=== PATIENT | female | born 1990 | race Caucasian/White ===

== ENCOUNTER → 2024-01-08 14:39 | Outpatient (REF) | payer OTHER, SELFPAY | LOC: RAD 14:39 | PROVIDERS: ATTENDING PHYSICIAN Obstetrics & Gynecology; FAMILY PHYSICIAN Family Medicine | DX: O26.851 Spotting complicating pregnancy, first trimester (principal) | CPT/HCPCS: 76801; 76817 ==

== ENCOUNTER 2024-01-10 08:24 | Emergency (ER) | payer OTHER, SELFPAY ==
[2024-01-10 08:26] VITALS: BP 119/73
[2024-01-10 09:09] LABS: % Basophils 0.4 % (0-2); % Immature Granulocytes 0.4 % (0-0.5); % Lymphocytes 18.1 % (20.5-51.1); % Monocytes 7.6 % (1.7-9.3); % Neutrophils 70.5 % (42.2-75.2); Absolute Eosinophils 0.3 10^3/uL (0-0.7); Absolute Lymphocytes 1.5 10^3/uL (1.2-3.4); Absolute Monocytes 0.6 10^3/uL (0.1-0.6); Absolute Neutrophils 5.9 10^3/uL (1.4-6.5); Hematocrit 38.7 % (37.0-47.0); Hemoglobin 13.3 g/dL (12.0-16.0); Mean Corp Hgb Conc. 34.4 g/dL (33.0-37.0); Mean Corpuscular Hgb 28.1 pg (27.0-31.0); Mean Corpuscular Volume 81.6 fL (81.0-99.0); Mean Platelet Volume 11.3 fL (7.4-10.4); Nucleated Red Blood Cells % 0 %; Platelet Count 248 10^3/uL (130-400); Red Blood Cell Count 4.74 10^6/uL (4.20-5.40); Red Cell Dist. Width 14.5 % (11.5-14.5); White Blood Cell Count 8.4 10^3/uL (4.8-10.8)
[2024-01-10 09:27] LABS: Blood Urea Nitrogen 10 mg/dl (7-17); Calcium 9.5 mg/dl (8.4-10.2); Carbon Dioxide 23 mmol/L (22-30); Chloride 102 mmol/L (98-107); Glucose 122 mg/dl (70-99); Potassium 4.2 mmol/L (3.5-5.1); Sodium 134 mmol/L (135-145); eGFR > 60.00
[2024-01-10 09:43] LABS: Beta HCG Quantitative 655.47 mIU/ml
[2024-01-10] MEDS: NSS 500 IV (09:57)
[2024-01-10] MEDS: OFIRMEV 100 IV (10:10)
--- NOTE | 2024-01-10 11:02 | ED.GENMED ---
History of Present Illness
General
Chief Complaint: Problems
Source: patient
Exam Limitations: none
Time Seen by Provider: 01/10/24 08:37
History of Present Illness
History of Present Illness:
, 7 weeks being evaluated and followed for possible ectopic. Has had some spotting. Some right lower quadrant or pelvic pain. Ultrasound 2 days ago was nondiagnostic. Last quantitative hCG was 1900. Some increasing pain overnight
into today. Sent for further evaluation.
Past History
Past History
ED Past Medical History: Other (Cholelithiasis)
ED Past Surgical History: Other (Oral surgery)
Social History
Tobacco: Non-smoker
Alcohol: Occasional
Living: with family
Employment: Employed
Family History
Family History: Other (Cholelithiasis)
Review of Systems
Review of Systems
All Other Systems: Not applicable
Constitutional: Denies fever or chills
ABD/GI: Denies anorexia
Phy Exam
Physical Exam
Physical Exam:
GENERAL: Alert and oriented in no apparent distress
EYE: Orbits normal.
NECK: Supple
CARDIAC: Regular rate and rhythm without any obvious murmurs.
LUNGS: Clear breath sounds,normal
ABDOMEN: Soft, elevated BMI. Bowel sounds present. No distention. Mild reproducible tenderness deep towards the right pelvis. No tenderness at McBurney's point
NEUROLOGICAL: Alert and oriented , grossly non-focal
SKIN: Warm and dry
MUSCULOSKELETAL: No edema,no deformity.Good color
PSYCH: Normal and appropriate interaction.
Course
Orders/Labs/Results
Orders:
Orders
01/10/24 08:37
0.9% Sodium Chloride 500 ml [Nss] 500 ml IV BOLUS
US 1st Trimester Urgent
Reason For Exam: /pelvic pain
01/10/24 08:52
Blood Group&Type Urgent
Basic Metabolic Panel Urgent
Beta HCG Quantitative Urgent
Is this a screen?: No
Complete Blood Count/With Diff Urgent
01/10/24 10:06
Acetaminophen 1000MG/100Ml [Ofirmev] 1,000 mg in 100 ml IV ONCE
Acetaminophen IV Indication:: ED Narcotic Naive Pt-ONCE
01/10/24 10:48
Methotrexate Sodium/Pf [Methotrexate] 135.5 mg Intramuscular Injection 0 ml IM ONCE
Abnormal Lab Results
01/10/24
08:52
MPV 11.3 H fL
(7.4-10.4)
Lymphocytes % 18.1 L %
(20.5-51.1)
Sodium 134 L mmol/L
(135-145)
Glucose 122 H mg/dl
(70-99)
01/10/24 08:52
01/10/24 08:52
Vital Signs
Initial and Last Documented VS:
Initial Vital Signs
Temp Pulse Resp BP Pulse Ox
97.3 F 84 16 119/73 98
01/10/24 08:26 01/10/24 08:26 01/10/24 08:26 01/10/24 08:26 01/10/24 08:26
Last Documented Vital Signs
Temp Pulse Resp BP Pulse Ox
97.3 F 84 16 119/73 98
01/10/24 08:26 01/10/24 08:26 01/10/24 08:26 01/10/24 08:26 01/10/24 08:26
Information
Weeks gestation: Weeks: (7)
Location: Location: ([facility])
MDM/Problems Addressed
Differential Diagnosis Includes:
Concern for ectopic . Quantitative hCGs are lowering. Ultrasound consistent with a probable ectopic. Highly doubt that these are incidental findings and that the diagnosis is appendicitis. No fever no white count no tenderness McBurney
point another reasonable etiology for patient's symptoms. Seen by obstetrics/[facility]. They apparently after discussion with the patient have elected methotrexate. Stable for discharge to follow-up
*Radiology
Radiology exam reviewed: radiology read reviewed (Rounded hypoechoic structure right adnexa. Suspicious for ectopic)
*Pulse Oximetry
Patient hypoxic: no
*Critical Care Note
Total Time (30-74mins, 75-104mins- exclusive of procedures): Not Applicable
ED Attending Note
-
Portions of this chart may have been created with voice recognition software.� Occasional wrong word or��sound alike� substitutions may have occurred due to the inherent limitations of voice recognition software.
Discharge Plan
Departure
Patient Disposition: Home (Routine Discharge)
Date of Disposition: 01/10/24
Time of Disposition: 11:06
Patient with high blood pressure during this ER visit?: No
Discharge Problem:
Right pelvic pain, Ectopic
Instructions: Ectopic ED
Prescriptions:
No Action
labetalol 100 mg Tablet
100 mg PO TID
prenat.vits,quiana,dha-mbzo-loovy Tablet
1 tab PO DAILY
acetaminophen 325 mg Tablet
650 mg PO Q4HPRN PRN (Reason: mild pain) Qty: 0 0RF
sennosides-docusate sodium [Senna Plus] 8.6-50 mg Tablet
1 tab PO DAILYPRN PRN (Reason: constipation) Qty: 0 0RF
ibuprofen 600 mg Tablet
600 mg PO Q6HPRN PRN (Reason: moderate pain/cramps) Qty: 45 0RF
Referrals:
Olivia Leija MD [Active] -
Loretta Ochoa DO [Family Provider] -
Activity Restrictions/Additional Instructions:
Follow-up as per your [employer] physician
Return sooner with increased pain fever lightheadedness feeling like you are to pass out or any other concerning symptoms
Interventions
Interventions:
*Risk Screen - Suicide Last Done: 01/10/24 08:26
*General Assessment Last Done: 01/10/24 08:26
*Neglect/Abuse Screening Last Done: 01/10/24 08:26
ED- Fall Risk Assessment Last Done: 01/10/24 09:06
*ED COVID-19 Vaccine History Last Done: 01/10/24 09:06
ED-Female Genitourinary Assessment Last Done: 01/10/24 09:06
Discharge Date and Time
Print Language: CYMRAES
[2024-01-10] MEDS: METHOTREXATE 2 MG IM ×2 (12:10→12:11)
[2024-01-10] MEDS: METHOTREXATE 1 MG IM (12:11)
[2024-01-10 12:45] VITALS: BP 149/96
--- NOTE | 2024-01-10 12:57 | CON.MD ---
Consultation - Medical
-
33yo presents to the ER due to worsening RLQ pain since last night as well as spotting for the last few days. She has been followed as an outpatient for of unknown location. Initially patient had a lot of bleeding in early December,
this prompted us to monitor her HCGs which seemed to be rising okay until today. Her bleeding initially stopped and then resumed as spotting a few days ago. She denies n/v/f/c.
HCGs are as follows
12/25: 21
12/30: 229
01/01: 553
01/06: 1983
01/08: 161
Patient did have a Pelvic U/S outpatient on 01/07 due to return of spotting, and this showed no IUP and also no adnexal mass
PMHx: CHTN, Obesity
POBHx: x1, SAB x1
FHx: Dad- Diabetes Mom- bobby's, MGM- breast CA
SHx: neg x3
Meds: labetalol 100mg TID
All: NKDA
Vitals & Labs see below
Gen: nad
Abd: soft, nt, nd, obese
Ext: no LE ttp/edema
Pelvic US: Uterus 10.3x 4.3x 6.3cm. EMS6mm Right ovary 2cm. Rounded hypoechoic structure in right adnexa adjacent to right ovary 2.1x 2.3x 1.8cm. No FP./YS seen. Left ovary 1.2cm.
A/P: 33yo with suspected Right ectopic
-patient is hemodynamically stable. states that her pain has been significantly improved with tylenol while in the ER. I reviewed with her and her family member the results of her HCG and her Pelvic US which is concerning for an ectopic in
the right tube. There is no suspicion at this time for rupture of the tube. I think she is a good candidate for medical management with methotrexate. I explained to her the possible side effects and activities/medications she should avoid and
provided her with a document that lists this information. I explained the importance of close f/u of her HCGs and told her specifically when she needs to return for labs. Patient aware that there is still a risk for rupture even after MTX treatment
so she is to call with any severe pain not relieved with tylenol. Patient also aware that a 2nd dose of MTX may be needed if her HCG does not appropriately drop. She expressed understanding
-patient can be d/c home after she receives MTX.
Encounter and review of imaging and Documentation Time = 35 mins
Vital Signs and Labs
-
Vital Signs and Labs:
Vital Signs
Temp Pulse Resp BP Pulse Ox
97.3 F 84 16 119/73 98
01/10/24 08:26 01/10/24 08:26 01/10/24 08:26 01/10/24 08:26 01/10/24 08:26
Lab Results
01/10/24 08:52
01/10/24 08:52
Sodium 134 mmol/L (135-145) L 01/10/24 08:52
Potassium 4.2 mmol/L (3.5-5.1) 01/10/24 08:52
BUN 10 mg/dl (7-17) 01/10/24 08:52
Glucose 122 mg/dl (70-99) H 01/10/24 08:52
Calcium 9.5 mg/dl (8.4-10.2) 01/10/24 08:52
HC.47
== END 2024-01-10 12:45 | disposition home or self-care (01) ==
LOC: EMR 08:24
PROVIDERS: EMERGENCY PHYSICIAN Emergency Medicine; FAMILY PHYSICIAN Family Medicine; OTHER PHYSICIAN Obstetrics & Gynecology
DX: O00.90 Unspecified ectopic pregnancy without intrauterine pregnancy (principal); O26.891 Other specified pregnancy related conditions, first trimester; Z3A.01 Less than 8 weeks gestation of pregnancy; R10.2 Pelvic and perineal pain; O99.211 Obesity complicating pregnancy, first trimester
CPT/HCPCS: 99284; 96374; 96361 ×2; 96372 ×3; 76801; 80048; 84702; 85025; 86900; 86901; J9260

== ENCOUNTER → 2024-01-13 08:35 | Outpatient (REF) | payer OTHER, SELFPAY ==
[2024-01-13 09:43] LABS: Beta HCG Quantitative 77.51 mIU/ml
== END ==
LOC: REG 08:35
PROVIDERS: ATTENDING PHYSICIAN Obstetrics & Gynecology; FAMILY PHYSICIAN Family Medicine
DX: O00.01 Abdominal pregnancy with intrauterine pregnancy (principal)
CPT/HCPCS: 36415; 84702

== ENCOUNTER → 2024-01-16 09:14 | Outpatient (REF) | payer OTHER, SELFPAY ==
[2024-01-16 11:07] LABS: Beta HCG Quantitative 40.09 mIU/ml
== END ==
LOC: REG 09:14
PROVIDERS: ATTENDING PHYSICIAN Obstetrics & Gynecology; FAMILY PHYSICIAN Family Medicine
DX: O00.101 Right tubal pregnancy without intrauterine pregnancy (principal)
CPT/HCPCS: 36415; 84702

== ENCOUNTER → 2024-01-23 10:43 | Outpatient (REF) | payer OTHER, SELFPAY ==
[2024-01-23 11:36] LABS: Beta HCG Quantitative 3.85 mIU/ml
== END ==
LOC: REG 10:43
PROVIDERS: ATTENDING PHYSICIAN Obstetrics & Gynecology
DX: O00.101 Right tubal pregnancy without intrauterine pregnancy (principal)
CPT/HCPCS: 36415; 84702